=== PATIENT | male | born 1990 | race African-American/Black ===

== ENCOUNTER 2016-06-19 03:20 | Emergency (ER) | payer SELFPAY ==
[~2016-06-19] VITALS: Ht 175.3 cm; Wt 87.0 kg
[2016-06-19] MEDS ORDERED: ONDANSETRON HCL 4MG/2ML VIAL IV STA (03:54)
[2016-06-19] MEDS ORDERED: MORPHINE SULFATE 4 MG/ML CPJ (NOT FOR IM USE) IV STA (03:54)
[2016-06-19] MEDS ORDERED: HYDROMORPHONE HCL/PF 2MG/ML CPJ IV ONE (05:30)
[2016-06-19 05:44] VITALS: BP 164/89
== END 2016-06-19 07:02 | disposition home or self-care (01) ==
LOC: ER 03:42
DX: S92.001A Unspecified fracture of right calcaneus, initial encounter for closed fracture (principal); F17.200 Nicotine dependence, unspecified, uncomplicated; Y93.39 Activity, other involving climbing, rappelling and jumping off; Y99.9 Unspecified external cause status; Y92.89 Other specified places as the place of occurrence of the external cause
CPT/HCPCS: 73610; 73630; 96374; 96375; 99284; J1170; J2270; J2405; Z7610